=== PATIENT | male | born 1980 | race Two or more races ===

== ENCOUNTER 2019-12-30 18:58 | Emergency (ER) | payer MEDICAID ==
[~2019-12-30] VITALS: Ht 177.8 cm; Wt 91.0 kg
[2019-12-30] MEDS ORDERED: TETANUS, DIPHTHERIA, PERTUSSIS VAC/PF 0.5ML (>7YR OLD) IM ONE (19:30)
[2019-12-30] MEDS ORDERED: LORAZEPAM 2MG/ML CPJ IM PRN (19:30)
[2019-12-30] MEDS ORDERED: ZIPRASIDONE MESYLATE 20MG/VIAL IM ONE (19:30)
[2019-12-30 23:07] LABS: BASOPHILS % 0.8 % (0.0-2.0); EOSINOPHILS % 2.1 % (0.0-5.0); HEMATOCRIT. 41.3 % (42.0-52.0); HEMOGLOBIN. 14.3 g/dL (14.0-18.0); LYMPHOCYTES % 23.6 % (20.0-50.0); MEAN CORPUSCULAR HEMOGLOBIN 32.4 pg (28.0-32.0); MEAN CORPUSCULAR VOLUME 93.8 fL (80.0-94.0); MONOCYTES % 5.3 % (2.0-8.0); NEUTROPHILS % 68.2 % (40.0-76.0); PLATELET 306 x1000/uL (130-400); RED CELL DISTRIBUTION WIDTH 14.1 % (11.6-14.6)
[2019-12-30 23:14] LABS: CHLORIDE 110 mEq/L (98-107)
[2019-12-30 23:17] LABS: ETHANOL BLOOD < 10 mg/dL
[2019-12-31] MEDS ORDERED: CEFAZOLIN 1000MG PREMIX 50 ML IV ONE (00:30)
[2019-12-31 05:30] VITALS: BP 107/61
== END 2019-12-31 06:26 | disposition home or self-care (01) ==
LOC: ER 18:58
DX: S01.81XA Laceration without foreign body of other part of head, initial encounter (principal); S56.427A Laceration of extensor muscle, fascia and tendon of right little finger at forearm level, initial encounter; Y08.89XA Assault by other specified means, initial encounter; Y93.89 Activity, other specified; Y92.89 Other specified places as the place of occurrence of the external cause; Y99.8 Other external cause status; F22 Delusional disorders
CPT/HCPCS: 36415; 80048; 80307; 80320; 80329; 85025; 90471; 90715; 96365; 96372; 99285; J0690; J2060; J3486; G0480